=== PATIENT | male | born 1970 | race American Indian/Alaskan Native ===

== ENCOUNTER 2017-12-10 19:33 | Emergency (ER) | payer MEDICAID ==
[2017-12-10 21:19] LABS: Hematocrit 45.6 % (35.5-45.6); Hemoglobin 15.8 gm/dl (11.8-15.2); Mean Corpuscular HGB Conc 35 % (32-34); Mean Corpuscular Hemoglobin 32 pg (28-32); Mean Corpuscular Volume 92 fl (84-94); Red Blood Count 4.96 M/mm3 (3.65-5.03); Red Cell Distribution Width 13.9 % (13.2-15.2)
[2017-12-10 22:08] LABS: Basophils % (Manual) 0 % (0.0-1.8); Eosinophils % (Manual) 0 % (0.0-4.3); Total Cells Counted 100; Toxic Vacuolation Few
[2017-12-10 22:09] LABS: Platelet Estimate Appears Decreased; Poikilocytosis Few
[2017-12-10 22:10] LABS: Platelet Count 96 K/mm3 (140-440)
[2017-12-10 22:57] LABS: Bilirubin,Urine NEG (Negative); Blood,Urine SM (Negative); Color,Urine Amber (Yellow); Mucus,Urine FEW /HPF
[2017-12-11] MEDS ORDERED: NORCO 5/325 PO ONE ×2 (02:19→02:29)
[2017-12-11] MEDS ORDERED: ZOFRAN IM ONE (02:29)
--- NOTE | 2017-12-11 02:34 | Emergency Department Report ---
Chief Complaint: Urogenital-Male Stated Complaint: TOOTH PAIN/BLOOD IN URINE Time Seen by Provider: 12/11/17 02:14 - HPI History of Present Illness: Patient and family member reports patient with toothache and abscess in his mouth, blood in his urine and diarrhea that started this morning and has been ongoing. Patient said he feels weak. Pain is 10 out of 10 to mouth. Denies any abdominal pain. Denies any blood in his stool. He said blood in his urine is continuous. He sees a GI doctor for cirrhosis of the liver. He said he has been taking ibuprofen but it doesn't help. Reports some nausea without any vomiting. Denies any back pain. Denies any urinary burning and frequency urgency or any fever or chills. - ROS Review of Systems: all Systems are negative unless stated in HPI above - Exam Vital Signs: Vital Signs 12/10/17 12/10/17 12/10/17 19:52 19:54 20:01 Temperature 100.0 F H 100 F H Pulse Rate 102 H 103 H Respiratory 16 16 Rate Blood Pressure 108/73 108/73 O2 Sat by Pulse 95 95 Oximetry Physical Exam: This is a 47-year-old patient looks sick. Abdomen: Tender to palpate to her right upper quadrant of abdomen but this is from chronic cirrhosis. Positive bowel sounds in all quadrants. Abdomen is nonacute. Mouth: Moist, multiple missing teeth. Patient reports that it hurts when he opens his mouth. No trismus. Oral airways patent and uvula is midline. No swelling to tongue. MSE screening note: Focused history and physical exam performed. Due to findings the following was ordered: ED Medical Decision Making - Lab Data Result diagrams: 12/10/17 20:52 12/10/17 20:52 Lab Results 12/10/17 12/10/17 12/10/17 Range/Units 20:52 20:52 Unknown WBC 8.2 (4.5-11.0) K/mm3 RBC 4.96 (3.65-5.03) M/mm3 Hgb 15.8 H (11.8-15.2) gm/dl Hct 45.6 (35.5-45.6) % MCV 92 (84-94) fl MCH 32 (28-32) pg MCHC 35 H (32-34) % RDW 13.9 (13.2-15.2) % Plt Count 96 L (140-440) K/mm3 Add Manual Diff Complete Total Counted 100 Seg Neutrophils % Microstrategy Developer Seg Neuts % (Manual) 92.0 H (40.0-70.0) % Band Neutrophils % 0 % Lymphocytes % (Manual) 3.0 L (13.4-35.0) % Reactive Lymphs % (Man) 0 % Monocytes % (Manual) 5.0 (0.0-7.3) % Eosinophils % (Manual) 0 (0.0-4.3) % Basophils % (Manual) 0 (0.0-1.8) % Metamyelocytes % 0 % Myelocytes % 0 % Promyelocytes % 0 % Blast Cells % 0 % Nucleated RBC % Not Reportable Seg Neutrophils # Man 7.5 (1.8-7.7) K/mm3 Band Neutrophils # 0.0 K/mm3 Lymphocytes # (Manual) 0.2 L (1.2-5.4) K/mm3 Abs React Lymphs (Man) 0.0 K/mm3 Monocytes # (Manual) 0.4 (0.0-0.8) K/mm3 Eosinophils # (Manual) 0.0 (0.0-0.4) K/mm3 Basophils # (Manual) 0.0 (0.0-0.1) K/mm3 Metamyelocytes # 0.0 K/mm3 Myelocytes # 0.0 K/mm3 Promyelocytes # 0.0 K/mm3 Blast Cells # 0.0 K/mm3 WBC Morphology Not Reportable Hypersegmented Neuts Not Reportable Hyposegmented Neuts Not Reportable Hypogranular Neuts Not Reportable Smudge Cells Not Reportable Toxic Granulation Not Reportable Toxic Vacuolation Few Dohle Bodies Not Reportable Pelger-Huet Anomaly Not Reportable Robbie Rods Not Reportable Platelet Estimate Appears decreased Clumped Platelets Not Reportable Plt Clumps, EDTA Not Reportable Large Platelets Not Reportable Giant Platelets Not Reportable Platelet Satelliting Not Reportable Plt Morphology Comment Not Reportable RBC Morphology Not Reportable Dimorphic RBCs Not Reportable Polychromasia Not Reportable Hypochromasia Not Reportable Poikilocytosis Few Anisocytosis Not Reportable Microcytosis Not Reportable Macrocytosis Not Reportable Spherocytes Not Reportable Pappenheimer Bodies Not Reportable Sickle Cells Not Reportable Target Cells Not Reportable Tear Drop Cells Not Reportable Ovalocytes Not Reportable Helmet Cells Not Reportable Rucker-[place] Bodies Not Reportable [place] Rings Not Reportable [place] Cells Not Reportable Bite Cells Not Reportable Crenated Cell Not Reportable Elliptocytes Not Reportable Acanthocytes (Spur) Not Reportable Rouleaux Not Reportable Hemoglobin C Crystals Not Reportable Schistocytes Not Reportable Malaria parasites Not Reportable Evens Bodies Not Reportable Hem Pathologist Commnt No Sodium 134 L (137-145) mmol/L Potassium 3.9 (3.6-5.0) mmol/L Chloride 92.1 L (98-107) mmol/L Carbon Dioxide 22 (22-30) mmol/L Anion Gap 24 mmol/L BUN 30 H (9-20) mg/dL Creatinine 1.7 H (0.8-1.5) mg/dL Estimated GFR 52 ml/min BUN/Creatinine Ratio 18 % Glucose 128 H (75-100) mg/dL Calcium 9.0 (8.4-10.2) mg/dL Urine Color Pat (Yellow) Urine Turbidity Clear (Clear) Urine pH 5.0 (5.0-7.0) Ur Specific [place] 1.016 (1.003-1.030) Urine Protein 100 mg/dl (Negative) mg/dL Urine Glucose (UA) Neg (Negative) mg/dL Urine Ketones Neg (Negative) mg/dL Urine Blood Sm (Negative) Urine Nitrite Neg (Negative) Urine Bilirubin Neg (Negative) Urine Urobilinogen 4.0 (<2.0) mg/dL Ur Leukocyte Esterase Neg (Negative) Urine WBC (Auto) 9.0 H (0.0-6.0) /HPF Urine RBC (Auto) 3.0 (0.0-6.0) /HPF Urine Mucus Few /HPF Urine culture pending - Medical Decision Making MDM: Patient screened by provider Appropriate protocol initiated and patient to be seen in main ED by urine culture added. INT, Percocet and Zofran IV. ED Disposition for MSE Condition: Stable Referrals: AZAEL RICHTER MD [Primary Care Provider] - 3-5 Days
[2017-12-11] MEDS ORDERED: ZOFRAN IV ONE (02:45)
[2017-12-11 06:29] LABS: INR 0.93 (0.87-1.13)
[2017-12-11 06:30] LABS: Partial Thromboplastin Time 37.9 Sec. (24.2-36.6)
[2017-12-11 06:33] LABS: Albumin 3.9 g/dL (3.9-5); Bilirubin,Direct 1.4 mg/dL (0-0.2)
[2017-12-11] MEDS ORDERED: NACL 0.9% 1000 ML 1,000 ML IV ONE ×3 (07:14→12:56)
[2017-12-11] MEDS ORDERED: CLEOCIN 600 MG/50 mL 600 MG/50 ML BAG IV ONE (07:17)
[2017-12-11] MEDS ORDERED: MORPHINE IV ONE (07:18)
--- NOTE | 2017-12-11 07:44 | Emergency Department Report ---
ED ENT HPI - General Chief complaint: Urogenital-Male Stated complaint: TOOTH PAIN/BLOOD IN URINE Time Seen by Provider: 12/11/17 02:14 Source: patient Mode of arrival: Ambulatory Limitations: No Limitations - History of Present Illness Initial comments: 47-year-old male with a past medical history alcohol liver cirrhosis and hypertension presents complaining of right face swelling and pain 4 days. Positive tooth ache. Intermittent subjective fevers. Yesterday he noticed some blood in his urine and started having diarrhea 5. No complaints of dysuria, or vomiting. Patient has poor dentition chronically. Positive nausea. Denies abdominal pain, melena, hematochezia. - Related Data Previous Rx's Medication Instructions Recorded Last Taken Type Acetaminophen/Codeine [Tylenol #3] 1 tab PO Q6H PRN #20 tab 02/23/15 Unknown Rx Cephalexin [Keflex] 500 mg PO Q6H #40 capsule 02/23/15 Unknown Rx Ibuprofen [Motrin] 600 mg PO Q8H PRN #50 tablet 02/23/15 Unknown Rx Sulfamethoxazole/Trimethoprim 1 each PO BID #20 tablet 02/23/15 Unknown Rx [Bactrim Ds] Allergies Allergy/AdvReac Type Severity Reaction Status Date / Time No Known Allergies Allergy Verified 02/23/15 23:16 ED Dental HPI - General Chief complaint: Urogenital-Male Stated complaint: TOOTH PAIN/BLOOD IN URINE Time Seen by Provider: 12/11/17 02:14 Source: patient, old records reviewed (no previous record) Mode of arrival: Ambulatory Limitations: No Limitations - Related Data Previous Rx's Medication Instructions Recorded Last Taken Type Acetaminophen/Codeine [Tylenol #3] 1 tab PO Q6H PRN #20 tab 02/23/15 Unknown Rx Cephalexin [Keflex] 500 mg PO Q6H #40 capsule 02/23/15 Unknown Rx Ibuprofen [Motrin] 600 mg PO Q8H PRN #50 tablet 02/23/15 Unknown Rx Sulfamethoxazole/Trimethoprim 1 each PO BID #20 tablet 02/23/15 Unknown Rx [Bactrim Ds] Allergies Allergy/AdvReac Type Severity Reaction Status Date / Time No Known Allergies Allergy Verified 02/23/15 23:16 ED Review of Systems ROS: Stated complaint: TOOTH PAIN/BLOOD IN URINE Other details as noted in HPI Comment: All other systems reviewed and negative ED Past Medical Hx - Past Medical History Previous Medical History?: Yes Hx Hypertension: Yes Additional medical history: Alcohol -induced liver Cirrhosis - Surgical History Past Surgical History?: Yes Additional Surgical History: LUMP REMOVED FROM RIGHT LEG - Social History Smoking Status: Current Every Day Smoker Substance Use Type: Alcohol - Medications Home Medications: Home Medications Medication Instructions Recorded Confirmed Last Taken Type Acetaminophen/Codeine [Tylenol #3] 1 tab PO Q6H PRN #20 tab 02/23/15 Unknown Rx Cephalexin [Keflex] 500 mg PO Q6H #40 capsule 02/23/15 Unknown Rx Ibuprofen [Motrin] 600 mg PO Q8H PRN #50 tablet 02/23/15 Unknown Rx Sulfamethoxazole/Trimethoprim 1 each PO BID #20 tablet 02/23/15 Unknown Rx [Bactrim Ds] ED Physical Exam - General Limitations: No Limitations - Other Other exam information: General: No limitations, patient is alert in no acute distress Head exam: Atraumatic, normocephalic Eyes exam: Normal appearance, pupils equal reactive to light, extraocular movements intact ENT: Moist mucous membrane, positive trismus secondary to pain to the right side of the face. Right sided facial swelling anterior to the ear is tender to palpation. Multiple missing teeth and dental caries of malodorous breath Neck exam: Normal inspection, full range of motion, no meningismus nontender Respiratory exam: Clear to auscultation bilateral, no wheezes, rales, crackles Cardiovascular: Normal rate and rhythm, normal heart sounds Abdomen: Soft, nondistended, mild right upper quadrant tenderness, with normal bowel sounds, no rebound, or guarding Extremity: Full range of motion normal inspection no deformity Back: Normal Inspection, full range of motion, no tenderness Neurologic: Alert, oriented x3, cranial nerves intact, no motor or sensory deficit Psychiatric: normal affect, normal mood Skin: Warm, dry, intact ED Course Vital Signs 12/10/17 12/10/17 12/10/17 19:52 19:54 20:01 Temperature 100.0 F H 100 F H Pulse Rate 102 H 103 H Respiratory 16 16 Rate Blood Pressure 108/73 108/73 Blood Pressure [Right] O2 Sat by Pulse 95 95 Oximetry 12/11/17 12/11/17 12/11/17 02:44 03:01 06:50 Temperature 99 F Pulse Rate 77 86 Respiratory 18 18 18 Rate Blood Pressure Blood Pressure 116/69 123/67 [Right] O2 Sat by Pulse 96 95 Oximetry 12/11/17 12/11/17 12/11/17 07:53 11:08 12:47 Temperature 98.7 F 98.7 F Pulse Rate 102 H Respiratory 20 Rate Blood Pressure Blood Pressure 142/81 [Right] O2 Sat by Pulse 97 97 Oximetry 12/11/17 14:08 Temperature 98.5 F Pulse Rate 108 H Respiratory 16 Rate Blood Pressure Blood Pressure 144/76 [Right] O2 Sat by Pulse 97 Oximetry - Reevaluation(s) Reevaluation #1: 12/11/17 12:48 No airway compromise. Patient is spitting out the majority of his secretions but states he can't swallow liquids. Mild diaphoresis without fever. - Consultations Consultation #1: 12/11/17 9:40 AM call placed to ENT. No call back as of 12:15 PM. Spoke to supervisor blood donor recruiters at transfer service at [facility] Mr. Prajapati. He was able to get in contact with the ENT attending Dr. Diaz at 12:[address] Diaz accepted patient to the ER for evaluation or probable medicine admission and ENT and dental consultation. This case was discussed with the ER attending Dr. Casillas who has accepted the patient for transfer. [place] [facility] [place] 11:10 AM. Awaiting callback from Dr. Khan. At 12:10 PM I received callback from answering service that the office states he is dizzy and will call back when he is available. [facility] was also attempted but apparently same MD emergency response coordinator for [facility] and [place]/ ED Medical Decision Making - Lab Data Result diagrams: 12/10/17 20:52 12/10/17 20:52 Lab Results 12/10/17 12/10/17 12/10/17 Range/Units 20:52 20:52 Unknown WBC 8.2 (4.5-11.0) K/mm3 RBC 4.96 (3.65-5.03) M/mm3 Hgb 15.8 H (11.8-15.2) gm/dl Hct 45.6 (35.5-45.6) % MCV 92 (84-94) fl MCH 32 (28-32) pg MCHC 35 H (32-34) % RDW 13.9 (13.2-15.2) % Plt Count 96 L (140-440) K/mm3 Add Manual Diff Complete Total Counted 100 Seg Neutrophils % Draughtsman Seg Neuts % (Manual) 92.0 H (40.0-70.0) % Band Neutrophils % 0 % Lymphocytes % (Manual) 3.0 L (13.4-35.0) % Reactive Lymphs % (Man) 0 % Monocytes % (Manual) 5.0 (0.0-7.3) % Eosinophils % (Manual) 0 (0.0-4.3) % Basophils % (Manual) 0 (0.0-1.8) % Metamyelocytes % 0 % Myelocytes % 0 % Promyelocytes % 0 % Blast Cells % 0 % Nucleated RBC % Not Reportable Seg Neutrophils # Man 7.5 (1.8-7.7) K/mm3 Band Neutrophils # 0.0 K/mm3 Lymphocytes # (Manual) 0.2 L (1.2-5.4) K/mm3 Abs React Lymphs (Man) 0.0 K/mm3 Monocytes # (Manual) 0.4 (0.0-0.8) K/mm3 Eosinophils # (Manual) 0.0 (0.0-0.4) K/mm3 Basophils # (Manual) 0.0 (0.0-0.1) K/mm3 Metamyelocytes # 0.0 K/mm3 Myelocytes # 0.0 K/mm3 Promyelocytes # 0.0 K/mm3 Blast Cells # 0.0 K/mm3 WBC Morphology Not Reportable Hypersegmented Neuts Not Reportable Hyposegmented Neuts Not Reportable Hypogranular Neuts Not Reportable Smudge Cells Not Reportable Toxic Granulation Not Reportable Toxic Vacuolation Few Dohle Bodies Not Reportable Pelger-Huet Anomaly Not Reportable Robbie Rods Not Reportable Platelet Estimate Appears decreased Clumped Platelets Not Reportable Plt Clumps, EDTA Not Reportable Large Platelets Not Reportable Giant Platelets Not Reportable Platelet Satelliting Not Reportable Plt Morphology Comment Not Reportable RBC Morphology Not Reportable Dimorphic RBCs Not Reportable Polychromasia Not Reportable Hypochromasia Not Reportable Poikilocytosis Few Anisocytosis Not Reportable Microcytosis Not Reportable Macrocytosis Not Reportable Spherocytes Not Reportable Pappenheimer Bodies Not Reportable Sickle Cells Not Reportable Target Cells Not Reportable Tear Drop Cells Not Reportable Ovalocytes Not Reportable Helmet Cells Not Reportable Rucker-[place] Bodies Not Reportable [place] Rings Not Reportable Coffeen Cells Not Reportable Bite Cells Not Reportable Crenated Cell Not Reportable Elliptocytes Not Reportable Acanthocytes (Spur) Not Reportable Rouleaux Not Reportable Hemoglobin C Crystals Not Reportable Schistocytes Not Reportable Malaria parasites Not Reportable Evens Bodies Not Reportable Hem Pathologist Commnt No PT (12.2-14.9) Sec. INR (0.87-1.13) APTT (24.2-36.6) Sec. Sodium 134 L (137-145) mmol/L Potassium 3.9 (3.6-5.0) mmol/L Chloride 92.1 L (98-107) mmol/L Carbon Dioxide 22 (22-30) mmol/L Anion Gap 24 mmol/L BUN 30 H (9-20) mg/dL Creatinine 1.7 H (0.8-1.5) mg/dL Estimated GFR 52 ml/min BUN/Creatinine Ratio 18 % Glucose 128 H (75-100) mg/dL Calcium 9.0 (8.4-10.2) mg/dL Total Bilirubin (0.1-1.2) mg/dL Direct Bilirubin (0-0.2) mg/dL Indirect Bilirubin mg/dL AST (5-40) units/L ALT (7-56) units/L Alkaline Phosphatase (35-129) units/L Total Protein (6.3-8.2) g/dL Albumin (3.9-5) g/dL Albumin/Globulin Ratio % Urine Color Pat (Yellow) Urine Turbidity Clear (Clear) Urine pH 5.0 (5.0-7.0) Ur Specific [place] 1.016 (1.003-1.030) Urine Protein 100 mg/dl (Negative) mg/dL Urine Glucose (UA) Neg (Negative) mg/dL Urine Ketones Neg (Negative) mg/dL Urine Blood Sm (Negative) Urine Nitrite Neg (Negative) Urine Bilirubin Neg (Negative) Urine Urobilinogen 4.0 (<2.0) mg/dL Ur Leukocyte Esterase Neg (Negative) Urine WBC (Auto) 9.0 H (0.0-6.0) /HPF Urine RBC (Auto) 3.0 (0.0-6.0) /HPF Urine Mucus Few /HPF 12/11/17 12/11/17 Range/Units 05:56 05:56 WBC (4.5-11.0) K/mm3 RBC (3.65-5.03) M/mm3 Hgb (11.8-15.2) gm/dl Hct (35.5-45.6) % MCV (84-94) fl MCH (28-32) pg MCHC (32-34) % RDW (13.2-15.2) % Plt Count (140-440) K/mm3 Add Manual Diff Total Counted Seg Neutrophils % Seg Neuts % (Manual) (40.0-70.0) % Band Neutrophils % % Lymphocytes % (Manual) (13.4-35.0) % Reactive Lymphs % (Man) % Monocytes % (Manual) (0.0-7.3) % Eosinophils % (Manual) (0.0-4.3) % Basophils % (Manual) (0.0-1.8) % Metamyelocytes % % Myelocytes % % Promyelocytes % % Blast Cells % % Nucleated RBC % Seg Neutrophils # Man (1.8-7.7) K/mm3 Band Neutrophils # K/mm3 Lymphocytes # (Manual) (1.2-5.4) K/mm3 Abs React Lymphs (Man) K/mm3 Monocytes # (Manual) (0.0-0.8) K/mm3 Eosinophils # (Manual) (0.0-0.4) K/mm3 Basophils # (Manual) (0.0-0.1) K/mm3 Metamyelocytes # K/mm3 Myelocytes # K/mm3 Promyelocytes # K/mm3 Blast Cells # K/mm3 WBC Morphology Hypersegmented Neuts Hyposegmented Neuts Hypogranular Neuts Smudge Cells Toxic Granulation Toxic Vacuolation Dohle Bodies Pelger-Huet Anomaly Robbie Rods Platelet Estimate Clumped Platelets Plt Clumps, EDTA Large Platelets Giant Platelets Platelet Satelliting Plt Morphology Comment RBC Morphology Dimorphic RBCs Polychromasia Hypochromasia Poikilocytosis Anisocytosis Microcytosis Macrocytosis Spherocytes Pappenheimer Bodies Sickle Cells Target Cells Tear Drop Cells Ovalocytes Helmet Cells Rucker-[place] Bodies [place] Rings Coffeen Cells Bite Cells Crenated Cell Elliptocytes Acanthocytes (Spur) Rouleaux Hemoglobin C Crystals Schistocytes Malaria parasites Evens Bodies Hem Pathologist Commnt PT 12.9 (12.2-14.9) Sec. INR 0.93 (0.87-1.13) APTT 37.9 H (24.2-36.6) Sec. Sodium (137-145) mmol/L Potassium (3.6-5.0) mmol/L Chloride (98-107) mmol/L Carbon Dioxide (22-30) mmol/L Anion Gap mmol/L BUN (9-20) mg/dL Creatinine (0.8-1.5) mg/dL Estimated GFR ml/min BUN/Creatinine Ratio % Glucose (75-100) mg/dL Calcium (8.4-10.2) mg/dL Total Bilirubin 2.40 H (0.1-1.2) mg/dL Direct Bilirubin 1.4 H (0-0.2) mg/dL Indirect Bilirubin 1.0 mg/dL AST 399 H (5-40) units/L ALT 303 H (7-56) units/L Alkaline Phosphatase 116 (35-129) units/L Total Protein 6.8 (6.3-8.2) g/dL Albumin 3.9 (3.9-5) g/dL Albumin/Globulin Ratio 1.3 % Urine Color (Yellow) Urine Turbidity (Clear) Urine pH (5.0-7.0) Ur Specific [place] (1.003-1.030) Urine Protein (Negative) mg/dL Urine Glucose (UA) (Negative) mg/dL Urine Ketones (Negative) mg/dL Urine Blood (Negative) Urine Nitrite (Negative) Urine Bilirubin (Negative) Urine Urobilinogen (<2.0) mg/dL Ur Leukocyte Esterase (Negative) Urine WBC (Auto) (0.0-6.0) /HPF Urine RBC (Auto) (0.0-6.0) /HPF Urine Mucus /HPF - Radiology Data Radiology results: report reviewed Ct face noncontrast FINDINGS: There is right-sided soft tissue prominence in the pharyngeal and parapharyngeal region. There is blurring of the tissue planes on the right side. There is right-sided oropharyngeal and hypopharyngeal soft tissue prominence which could be soft tissue swelling although a mucosal lesion not excluded. Visualized hypopharynx is shifted to the left. In the right parapharyngeal region there is edema and stranding. There is enlargement of the submandibular gland as well as enlargement of the parotid gland. There is surrounding infiltration. There is any elongated collection of fluid within tissue planes extending from parapharyngeal region into the submandibular gland. A discrete abscess not seen. Abscess evaluation limited due the lack of IV contrast. IMPRESSION: There is large amount of soft tissue prominence, edema and swelling involving right parapharyngeal region, submandibular gland, parotid gland and commercial housekeeper musculature. The origin of these findings is unclear. Sialoadenitis is a possibility. Alternatively, may emanate from a pharyngeal/hypopharyngeal process. Specifically the right side of the oropharynx and hypopharynx is prominent with appearance suggesting a mucosal/submucosal lesion. Mass this area is not excluded. Direct visualization suggested. Although there is a large amount of edema as well some fluid in the tissue planes. I cannot confirm an abscess. Abscess evaluation is limited due to lack of IV contrast material. Note that airway is incompletely evaluated. The oropharynx and visualized hypopharynx are narrowed but grossly not critically compromised. Correlate clinically. - Medical Decision Making Right facial swelling Significant swelling as indicated by CT scan with displacement of the hypopharynx the left. Source of swelling/infection unclear why patient has poor dentition with multiple dental care Unfortunately patient cannot received IV contrast given renal insufficiency Airway still patent Patient able to swallow secretions but having difficulty swallowing solids/food Received IV clindamycin in the ED History of alcohol induced cirrhosis Likely the cause of elevated LFTs Likely because of thrombocytopenia No signs of anemia at this time Hematuria No dysuria Minimal blood on UA 9 WBCs without nitrites on UA Culture pending Renal insufficiency Baseline unknown (no previous records) Elevated BUN suggest that dehydration may be the cause Patient given 2 L of normal saline Diarrhea (nonbloody) mild Tenderness only in the right upper quadrant/ liver No fever reported Patient also received pain and nausea medication (morhine, dilaudid, zofran) Accepted for transfer to [facility] ER after consultation with ENT Dr. Diaz and Dr Casillas ED attending - Differential Diagnosis dental abscess, enteritis, dental caries, uti, coagulopathy Critical Care Time: No Critical care attestation.: If time is entered above; I have spent that time in minutes in the direct care of this critically ill patient, excluding procedure time. ED Disposition Clinical Impression: Pharyngeal swelling, Difficulty swallowing solids, Chronic alcoholic liver disease, Thrombocytopenia, Renal insufficiency, Elevated LFTs Disposition: DC/TX-70 ANOTHER TYPE HLTHCARE Is pt being admited?: No Condition: Stable Time of Disposition: 12:48 (Dr Diaz/Dr Suki chaudhry MD)
--- NOTE | 2017-12-11 08:41 | Cat Scan Report ---
FINAL REPORT EXAM: CT FACIAL BONES WO CON HISTORY: right sided facial swelling/abscess TECHNIQUE: CT of the face performed. No IV contrast administered. Axial images and coronal and sagittal reformatted images were obtained. PRIORS: None. FINDINGS: There is right-sided soft tissue prominence in the pharyngeal and parapharyngeal region. There is blurring of the tissue planes on the right side. There is right-sided oropharyngeal and hypopharyngeal soft tissue prominence which could be soft tissue swelling although a mucosal lesion not excluded. Visualized hypopharynx is shifted to the left. In the right parapharyngeal region there is edema and stranding. There is enlargement of the submandibular gland as well as enlargement of the parotid gland. There is surrounding infiltration. There is any elongated collection of fluid within tissue planes extending from parapharyngeal region into the submandibular gland. A discrete abscess not seen. Abscess evaluation limited due the lack of IV contrast. IMPRESSION: There is large amount of soft tissue prominence, edema and swelling involving right parapharyngeal region, submandibular gland, parotid gland and spanish professor musculature. The origin of these findings is unclear. Sialoadenitis is a possibility. Alternatively, may emanate from a pharyngeal/hypopharyngeal process. Specifically the right side of the oropharynx and hypopharynx is prominent with appearance suggesting a mucosal/submucosal lesion. Mass this area is not excluded. Direct visualization suggested. Although there is a large amount of edema as well some fluid in the tissue planes. I cannot confirm an abscess. Abscess evaluation is limited due to lack of IV contrast material. Note that airway is incompletely evaluated. The oropharynx and visualized hypopharynx are narrowed but grossly not critically compromised. Correlate clinically.
[2017-12-11] MEDS ORDERED: DILAUDID IV ONE (08:46)
[2017-12-11 14:10] VITALS: BP 144/76
== END 2017-12-11 14:08 | disposition other institution (70) ==
LOC: ED 19:33
DX: K70.9 Alcoholic liver disease, unspecified (principal); D69.6 Thrombocytopenia, unspecified; N28.9 Disorder of kidney and ureter, unspecified; R94.5 Abnormal results of liver function studies; J39.2 Other diseases of pharynx; R13.10 Dysphagia, unspecified; I10 Essential (primary) hypertension; F17.200 Nicotine dependence, unspecified, uncomplicated
CPT/HCPCS: 36415; 70486; 80048; 80074; 81001; 85007; 85025; 85610; 85730; 87086; 96361; 96365; 96375; 99285; J1170; J2270; J2405; J7030